=== PATIENT | female | born 1980 | race Caucasian/White ===

== ENCOUNTER → 2016-12-25 | Outpatient (CLI) | payer OTHER ==
[~2016-12-25] MED LIST: ALBUTEROL 0.5ML INH; ALBUTEROL17 G1 IH; ALBUTEROL17 GM; ALBUTEROL17 GM INH; ARTHROTEC 751 TAB.E2 PO; ATROVENT INH; BACTRIM DS TABL1 TA1 PO; BENADRYL25 M1 PO; BENZONATATE PO; CIPRO PO; CLARINEX-D1 TAB.SR . PO; CLARITIN D; CLARITIN D PO; CLARITIN10 MG PO; DARVOCET-N 1001 TAB PO; DICLOFENAC PO; DIFLUCAN PO; DOXYCYCLINE PO; FLEXERIL10 M1 PO; FLEXERIL10 MG PO; FLONASE16 GM; GUAIFENESI1 TAB.SR . PO; KEFLEX PO; KEFLEX500 MG PO; LEVAQUIN PO; LORATADINE PO; MEDROL DOSEPAK4 MG DOB; MOTRIN600 MG PO; NAPROSYN375 MG PO; NAPROXEN PO; NO MEDICATIONS; PERCOCET 5-3251 TAB PO; PERCOCET5/325 PO; PHENERGAN; PHENERGAN PO; PHENERGAN W/CO120 ML PO; PHENERGAN25 MG PO; PREDNISONE PO; PRILOSEC PO; PROMETHAZINE D118 ML PO; PULMICORT90 MCG/AER IH; QVAR7.3 G1; QVAR7.3 G1 IH; ROBITUSSIN ALL118 ML PO; TESSALON200 MG PO; TYLENOL #3 PO; TYLOX 5/500 CAP1 CAP PO; ULTRAM PO; VIBRAMYCIN100 M1 PO; VOLTAREN50 MG PO; ZANTAC; ZANTAC300 MG PO; ZITHROMAX PO; ZOLOFT50 MG PO; ZYRTEC-D TABLE1 EACH PO
--- NOTE | ~2016-12-25 | CR181 ---
[facility]. [facility] A Service of [facility] & [facility] RADIOLOGY TEXT RESULTS PATIENT: MAGY GUAMAN LOCATION: [facility] : 84 UNIT #: [id number] AGE: [address]: Linda Garcia SEX: F ORDER DR: [id number] [place] [id number] O MR#: [id number] Acc #: [id number] NAME: MAGY GUAMAN : 1980 SEX: F STUDY DATE/TIME: 12/25/2016 8:30 UNIT: [facility] ROOM: STUDY DESCRIPTION: CR Lumbar Spine 2 or 3 Views Attending Physician: Linda Garcia A.P.R.N. Referring Physician: Linda Garcia A.P.R.N. Ordering Physician: Staff Doctor Not On Primary Care Physician: Linda Garcia A.P.R.N. MEDICAL IMAGING REPORT This report is preliminary unless electronic signature is present. EXAM Lumbar spine 12/25/2016 INDICATION 1-month history of low back pain. No trauma. FINDINGS AP and lateral projections of the lumbar segment show good mineralization of both anterior and posterior elements. They are all anatomically normal without indication of fracture, dislocation, or malignant change of a sclerotic or lytic type. There is no congenital defect noted. The sacroiliac joints are normal. IMPRESSION Normal lumbar spine. Dictated by... Jaime Castro Jr., M.D. THIS IS AN ELECTRONICALLY VERIFIED REPORT Jaime Castro Jr., M.D. at 12/25/2016 3:54 PM MONIK/dalila TD: 12/25/2016 12:19 JOB #: [id number] MEDICAL IMAGING REPORT Page 1 of 1
--- NOTE | ~2016-12-25 | CR20 ---
[facility]. [facility] A Service of [facility] & [facility] RADIOLOGY TEXT RESULTS PATIENT: MAGY GUAMAN LOCATION: [facility] : 84 UNIT #: [id number] AGE: [address]: Linda Garcia SEX: F ORDER DR: [id number] [place] [id number] O MR#: [id number] Acc #: [id number] NAME: MAGY GUAMAN : 1980 SEX: F STUDY DATE/TIME: 12/25/2016 8:30 UNIT: [facility] ROOM: STUDY DESCRIPTION: CR Ankle Min 3 Views Lt Attending Physician: Linda Garcia A.P.R.N. Referring Physician: Linda Garcia A.P.R.N. Ordering Physician: Physician Non-Staff Primary Care Physician: Linda Garcia A.P.R.N. MEDICAL IMAGING REPORT This report is preliminary unless electronic signature is present. EXAM Left ankle. HISTORY Ankle weakness chronically. Patient fell 4 days ago after the ankle gave out. TECHNIQUE Three views of the ankle were obtained. FINDINGS AP, lateral, and oblique projections of the ankle show satisfactory integrity of the joint mortise with a smooth articular surface. There is no identifiable fracture, dislocation, or radiopaque foreign body. IMPRESSION Normal ankle. Dictated by... Jaime Balderas M.D. THIS IS AN ELECTRONICALLY VERIFIED REPORT Jaime Balderas M.D. at 12/25/2016 3:46 PM TERESAF/pa TD: 12/25/2016 11:38 JOB #: [id number] MEDICAL IMAGING REPORT Page 1 of 1
== END | disposition home or self-care (01) ==
LOC: SRAD 08:11
DX: M54.5 Low back pain (principal); M25.572 Pain in left ankle and joints of left foot
CPT/HCPCS: 72100; 73610

== ENCOUNTER → 2016-12-28 | Outpatient (CLI) | payer OTHER ==
--- NOTE | ~2016-12-28 | US85 ---
[facility] A Service of [facility] RADIOLOGY TEXT RESULTS PATIENT: MAGY GUAMAN LOCATION: [facility] : 84 UNIT #: [id number] AGE: [address]: Linda Garcia SEX: F ORDER DR: [id number] [address] [address] [id number] O MR#: [id number] Acc #: [id number] NAME: MAGY GUAMAN : 1980 SEX: F STUDY DATE/TIME: 12/28/2016 10:19 UNIT: [facility] ROOM: STUDY DESCRIPTION: [facility] Veins Unilat or Ltd Stdy Attending Physician: Linda Garcia A.P.R.N. Referring Physician: Linda Garcia A.P.R.N. Ordering Physician: Linda Garcia A.P.R.N. Primary Care Physician: Linda Garcia A.P.R.N. MEDICAL IMAGING REPORT This report is preliminary unless electronic signature is present. EXAM Left lower extremity venous ultrasound. HISTORY Pain left lower extremity for a week with knot in left lateral leg for a week. FINDINGS Ultrasound of the left lower extremity was performed. The veins show compression and flow from the common femoral region all the way down to trifurcation veins. No abnormality is identified. Patient's area of concern in the lateral left ankle was evaluated and no focal masses were visible. IMPRESSION No venous thrombosis identified in the left lower extremity. Ultrasound of the area of swelling in the lateral left ankle region was performed and no masses were visible. Dictated by... Giovanni Wong M.D. THIS IS AN ELECTRONICALLY VERIFIED REPORT Giovanni Wong M.D. at 12/28/2016 4:31 PM Floyd TD: 12/28/2016 13:01 JOB #: [id number] [facility] A Service [facility] RADIOLOGY TEXT RESULTS PATIENT: MAGY GUAMAN LOCATION: [facility] : 84 UNIT #: [id number] AGE: [address]: Linda Garcia SEX: F ORDER DR: MEDICAL IMAGING REPORT Page 1 of 1
== END | disposition home or self-care (01) ==
LOC: SNIV 10:06
DX: M79.662 Pain in left lower leg (principal)
CPT/HCPCS: 93971

== ENCOUNTER → 2017-01-28 | Outpatient (CLI) | payer OTHER ==
[2017-01-28 16:49] LABS: HEMATOCRIT 40.7 % (35.0-45.0); HEMOGLOBIN 13.5 gm/dL (12.0-16.0); MEAN CELL VOLUME 89.5 FL (83-96); MEAN CORPUSCULAR HEMOGLOBIN 29.6 PG (28-34); MEAN PLATELET VOLUME 10.1 FL (6.5-11.5); RED BLOOD COUNT 4.55 X10e (3.90-5.30); RED CELL DISTRIBUTION WIDTH 13.5 % (11.0-15.5); WHITE BLOOD COUNT 10.1 X10e3 (4.0-10.5)
[2017-02-02 23:18] LABS: ANA SCREEN Positive (Negative); ANA TITER COMMENT Has been added (()); NUCLEAR PATTERN (ANA) Nucleolar (())
== END | disposition home or self-care (01) ==
LOC: CLAB 16:14
PROVIDERS: Physician Assistant
DX: L52 Erythema nodosum (principal); R22.40 Localized swelling, mass and lump, unspecified lower limb
CPT/HCPCS: 36415; 85027; 85652; 86038; 86039; 86140; 86430; 86812